=== PATIENT | female | born 1990 | race Caucasian/White ===

== ENCOUNTER 2020-04-13 07:59 | Outpatient (REF) | payer OTHER, SELFPAY | END 2020-04-13 08:00 | disposition home or self-care (01) | LOC: HO.LAB 07:59 | PROVIDERS: Visit Provider Internal Medicine | DX: Z20.828 Contact with and (suspected) exposure to other viral communicable diseases (principal) | CPT/HCPCS: C9803; U0003 ==

== ENCOUNTER 2020-04-21 09:29 | Outpatient (REF) | payer OTHER, SELFPAY | END 2020-04-21 09:30 | disposition home or self-care (01) | LOC: HO.LAB 09:29 | PROVIDERS: Visit Provider Internal Medicine | DX: Z20.828 Contact with and (suspected) exposure to other viral communicable diseases (principal) | CPT/HCPCS: C9803; U0003 ==

== ENCOUNTER 2020-05-07 15:31 | Outpatient (REF) | payer OTHER, SELFPAY | END 2020-05-07 15:32 | disposition home or self-care (01) | LOC: HO.LAB 15:31 | PROVIDERS: Visit Provider Internal Medicine | DX: Z20.828 Contact with and (suspected) exposure to other viral communicable diseases (principal) | CPT/HCPCS: C9803; U0003 ==

== ENCOUNTER 2020-06-06 15:30 | Outpatient (REF) | payer OTHER, SELFPAY | END 2020-06-06 15:31 | disposition home or self-care (01) | LOC: HO.LAB 15:30 | PROVIDERS: Visit Provider Internal Medicine | DX: Z20.822 Contact with and (suspected) exposure to COVID-19 (principal) | CPT/HCPCS: 36415; C9803; U0003 ==

== ENCOUNTER 2020-09-05 14:01 | Outpatient (REF) | payer OTHER, SELFPAY ==
[2020-09-05 15:37] LABS: COVID-19 Test Negative (Negative); IDNOW Serial# 55D5AD1C
== END 2020-09-05 14:02 | disposition home or self-care (01) ==
LOC: HO.LAB 14:01
PROVIDERS: Visit Provider Internal Medicine
DX: Z20.822 Contact with and (suspected) exposure to COVID-19 (principal)
CPT/HCPCS: 36415; 87635; C9803

== ENCOUNTER 2021-02-01 10:30 | Outpatient (REF) | payer MEDICAID, SELFPAY | END 2021-02-01 10:31 | disposition home or self-care (01) | LOC: HO.LAB 10:30 | PROVIDERS: Visit Provider Internal Medicine | DX: Z20.822 Contact with and (suspected) exposure to COVID-19 (principal) | CPT/HCPCS: C9803; U0003; U0005 ==

== ENCOUNTER 2021-02-06 11:06 | Outpatient (REF) | payer MEDICAID, SELFPAY | END 2021-02-06 11:07 | disposition home or self-care (01) | LOC: HO.LAB 11:06 | PROVIDERS: Visit Provider Internal Medicine | DX: Z20.822 Contact with and (suspected) exposure to COVID-19 (principal) | CPT/HCPCS: C9803; U0003; U0005 ==

== ENCOUNTER → 2021-02-12 10:15 | Outpatient (BNVA) | payer MEDICAID, SELFPAY | PROVIDERS: Visit Provider Advanced Practice Midwife ==

== ENCOUNTER 2021-02-21 09:22 | Outpatient (REF) | payer MEDICAID, SELFPAY | END 2021-02-21 09:23 | disposition home or self-care (01) | LOC: HO.LAB 09:22 | PROVIDERS: Visit Provider Internal Medicine | DX: Z20.822 Contact with and (suspected) exposure to COVID-19 (principal) | CPT/HCPCS: C9803; U0003; U0005 ==

== ENCOUNTER 2021-04-10 12:03 | Emergency (ER) | payer MEDICAID, SELFPAY ==
--- NOTE | ~2021-04-10 | XR_ITS ---
EXAMINATION: XR CHEST CLINICAL INFORMATION: Cough and asthma COMPARISON: Chest 03/19/2017 TECHNIQUE: 2 views of the chest were obtained. FINDINGS: No significant abnormality is noted involving the heart, lungs, mediastinum, bony thorax or soft tissues. XR/XR chest 2V IMPRESSION: Unremarkable chest examination.
[2021-04-10 12:15] VITALS: BP 112/71; PULSE 76; RESP 20; TEMP 36.7; O2SAT 97; BMI 41.5
--- NOTE | 2021-04-10 13:00 | ED_ITS ---
HPI - Asthma General Chief Complaint: Asthma Stated Complaint: asthma, cough Time Seen by Provider: 04/10/21 12:58 Source: patient Limitations: no limitations History of Present Illness HPI Narrative: This is a 31-year-old female with a history of asthma who had been well for sometime in till she developed URI symptoms about a week ago. The patient had an estimation of asthma and was seen at the [facility] 2 days ago, was started on prednisone and Zithromax, as well as albuterol, benzonatate. The patient states she was not able to get her ?chew week off medicine? field but has been taking the other ones. She noted this morning that she had severe cough which led to vomiting and she was not able to hold down her prednisone. She went to the [facility] again and was referred to the ED for evaluation, possible parental steroids. Patient reports shortness of breath with exertion, cough and wheezing. She denies any fever. She has had some URI symptoms but tested negative for COVID 2 days ago. She denies any chest pain, denies pain or swelling in her legs. She denies abdominal pain except soreness from coughing. She denies Related Data Previous Rx's Medication Instructions Recorded levonorgestrel-ethinyl estradiol 1 tab PO DAILY #84 tab 02/12/21 0.1 mg-20 mcg tablet albuterol sulfate 2.5 mg INHALATION QID PRN #75 ml 04/10/21 inhalational spacing device #10 ea 04/10/21 (Aerochamber MV) nebulizers (Aeroneb Go Nebulizer) #1 ea 04/10/21 Allergies Allergy/AdvReac Type Severity Reaction Status Date / Time Penicillins [PENICILLINS] Allergy Unknown RASH Verified 02/12/21 10:16 Review of Systems Review of Systems: Yes all other systems are reviewed and are negative Constitutional: Constitutional: Reports as per HPI and Denies fever(s) Eyes: Eyes: Reports as per HPI and Reports no additional eye complaints ENT: Reports system reviewed and no additional complaints, except as documented, Reports as per HPI, Denies nasal congestion, Denies nasal discharge and Denies sore throat Cardiovascular: Cardiovascular: Reports as per HPI, Denies chest pain and Reports dyspnea Respiratory: Respiratory: Reports as per HPI, Reports cough, Reports dyspnea and Reports wheezing Gastrointestinal: Gastrointestinal: Reports as per HPI, Denies abdominal pain, Denies diarrhea and Reports vomiting (Associated with coughing) Genitourinary: Genitourinary: Reports as per HPI, Denies hematuria, Denies urinary frequency and Denies dysuria Musculoskeletal: Musculoskeletal: Reports no additional musculoskeletal complaints and Denies numbness Integumentary/Breasts: Skin/Breast: Reports as per HPI and Denies rash Neurologic: Reports as per HPI, Denies focal weakness, Denies numbness and Denies Sensory deficit (Neuro) Psychiatric: Psychiatric: Reports no additional psychiatric complaints and Reports as per HPI Endocrine: Endocrine: Reports no additional endocrine complaints and Reports as per HPI Hematologic/Lymphatic: Hematologic/Lymphatic: Reports no additional hematologic/lymphatic complaints, Reports as per HPI and Reports other (No peripheral edema) Allergic/Immunologic: Allergic/Immunologic: Reports wheezing PMFSH Past Medical History Medical History (Updated 04/10/21 @ 14:48 by Dalton Torres MD) No active medical problems Family History Family History (Updated 04/10/21 @ 14:47 by Dalton Torres MD) Mother HTN (hypertension) High cholesterol Other Asthma Social History Social History (Updated 02/12/21 @ 10:19 by Krayna Arrington CMA) Alcohol intake: unknown Patient Tobacco Use Status: Never used Tobacco Use of substances other than those prescribed or required for medical reasons: Unable to respond Advance Directives: No Advance Directives Information Provided: Yes Patient : No Sexual orientation: Straight/Heterosexual Gender identity: Female Physical Exam Vital Signs: Vital Signs: Last Vital Signs Temp 98.1 F 04/10/21 12:15 Pulse 71 04/10/21 13:09 Resp 20 04/10/21 12:15 BP 112/71 04/10/21 12:15 Pulse Ox 97 04/10/21 12:15 Body Mass Index 41.5 Const: Other: Patient sitting on the edge of the rney, looking at her phone, appears comfortable. Patient talks in full sentences. General: cooperative, no acute distress and alert Orientation/consciousness: patient oriented x3 HENMT: Head: Yes normal to inspection Eyes: General: appearance normal, both eyes and all related structures Eyelids: Yes eyelids normal Conjunctivae: conjunctivae normal Pupils: Equal, round and reactive pupils present Neck: Neck: Yes normal visual inspection and Yes supple Chest: Chest palpation & inspection: normal inspection of the chest Resp: Effort & Inspection: normal respiratory effort Auscultation: not clear to auscultation bilaterally and wheezes (Mild expiratory) Cardio: Rate: regular rate Rhythm: regular rhythm Heart sounds: S1 normal heart sound present, S2 normal heart sound present, no gallops, no murmurs and no rubs GI: Palpation (GI): Soft to palpation, nontender and Other GI palpation findings present (Non-distended) Auscultation: normal bowel sounds Skin: General skin exam: no rashes or lesions noted Neuro: General: patient oriented x3, no focal motor deficits and CN's II-XI intact bilaterally Cranial nerves: Yes Equal, round and reactive pupils present Cognition (Neuro): normal cognition Motor exam (neuro): 5/5 motor strength present throughout Sensory Exam: No Sensory deficit (Neuro) Extrem: General: Yes normal to inspection and Yes no pedal edema Psych: Appearance: grossly normal Affect: normal affect MDM - Asthma MDM Narrative Medical decision making narrative: Patient of mild appearing asthma, with mild expiratory wheezes but speaking in full sentences, appears comfortable. Patient was sent in because she had vomited her prednisone this morning. Patient was given Solu-Medrol IM. She was given a DuoNeb which seemed to help her. She states that her albuterol inhaler does not seem to work well, but she has not been using a spacer. Am prescribing a spacer. The patient is also being pre scribed a nebulizer machine and albuterol for nebulizer. Chest x-ray is negative. Imaging Data Chest x-ray: Radiologist's impression: FINDINGS: No significant abnormality is noted involving the heart, lungs, mediastinum, bony thorax or soft tissues. XR/XR chest 2V IMPRESSION: Unremarkable chest examination. Discharge Plan Discharge Clinical Impression: Asthma attack Patient Disposition: Home, Self-Care Instructions: Asthma (ED) Additional Instructions: Use the nebulized albuterol every 6 hours as needed. If he need treatment in between or if your out and about and cannot access year nebulizer, use your inhaler with the spacer device. Continue the prednisone and a Zithromax in, and use your inhaler every 4 hours as needed. Follow up with your primary care physician. Prescriptions: New (DME) Aerochamber MV Spacer See Rx Instructions .Route Qty: 10 RF: 0 albuterol sulfate 2.5 mg /3 mL (0.083 %) solution for nebulization 2.5 mg inhalation QID PRN (Reason: bronchospasm) Qty: 75 RF: 0 (DME) Aeroneb Go Nebulizer Misc See Rx Instructions .Route Qty: 1 RF: 0 No Action levonorgestrel-ethinyl estrad 0.1-20 mg-mcg tablet 1 tab PO DAILY Qty: 84 RF: 4 Interventions: ED Discharge Assessment Last Done: 04/10/21 15:08 Discharge Date/Time: 04/10/21 15:08
[2021-04-10 13:09] VITALS: PULSE 71; O2SAT 99
[2021-04-10] MEDS: Albuterol/Iprat 2.5/0.5MG 3 ML AMPUL.NEB INHALE (13:09)
[2021-04-10] MEDS: methylPREDNISolone Sod Succ 125 MG/2 ML VIAL 80 MG IM (13:18)
== END 2021-04-10 15:08 | disposition home or self-care (01) ==
PROVIDERS: Emergency Provider Emergency Medicine
DX: J45.901 Unspecified asthma with (acute) exacerbation (principal); Z79.899 Other long term (current) drug therapy
CPT/HCPCS: 71046; 96372; 99284; J2930

== ENCOUNTER 2021-05-14 21:30 | Emergency (ER) | payer MEDICAID, SELFPAY ==
[2021-05-14 22:11] VITALS: BP 100/61; PULSE 82; RESP 20; TEMP 36.6; O2SAT 98; BMI 39.4
[2021-05-14 22:17] LABS: COVID-19 Test Positive (Negative)
== END 2021-05-14 23:32 | disposition left against medical advice (07) ==
PROVIDERS: Emergency Provider Emergency Medicine
DX: R52 Pain, unspecified (principal); Z20.822 Contact with and (suspected) exposure to COVID-19
CPT/HCPCS: 36415; 87635; 99282; 99283

== ENCOUNTER 2021-09-01 12:29 | Emergency (ER) | payer MEDICAID, SELFPAY ==
[2021-09-01 12:37] VITALS: BP 117/76; PULSE 92; RESP 16; TEMP 36.3; O2SAT 98; BMI 39.4
--- NOTE | 2021-09-01 13:34 | ED_ITS ---
HPI - Asthma General Chief Complaint: Asthma Stated Complaint: Body aches/Asthma Time Seen by Provider: 09/01/21 13:27 Source: patient Mode of arrival: ambulatory Limitations: no limitations History of Present Illness HPI Narrative: 31-year-old female with history of asthma presents to ED for coughing white phlegm, body aches, and runny nose for the past 3 days. Patient states her children also having similar symptoms. Patient denies any leg swelling, calf pain, coughing blood, shortness of breath on exertion chest pain, recent long travel, or any recent surgery. Related Data Previous Rx's Medication Instructions Recorded levonorgestrel-ethinyl estradiol 1 tab PO DAILY #84 tab 02/12/21 0.1 mg-20 mcg tablet albuterol sulfate 2.5 mg (3 mL) INHALATION QID PRN 04/10/21 #75 ml inhalational spacing device #10 ea 04/10/21 (Aerochamber MV) nebulizers (Aeroneb Go Nebulizer) #1 ea 04/10/21 albuterol sulfate 90 mcg/actuation 2 puff INHALATION Q4-6H PRN #8.5 g 09/01/21 aerosol inhaler (Ventolin HFA) benzonatate 100 mg capsule 100 mg PO TID PRN 5 Days #15 cap 09/01/21 oseltamivir 75 mg capsule (Tamiflu) 75 mg PO Q12H 5 Days #10 cap 09/01/21 prednisone 20 mg tablet 40 mg PO DAILY 5 Days #10 tab 09/01/21 Allergies Allergy/AdvReac Type Severity Reaction Status Date / Time Penicillins [PENICILLINS] Allergy Unknown RASH Verified 05/14/21 22:13 Review of Systems Review of Systems: Runny nose, body aches, and cough Yes all other systems are reviewed and are negative [facility] Past Medical History Medical History (Updated 09/01/21 @ 14:43 by JOSEPH Mccallum) No active medical problems Family History Family History (Updated 04/10/21 @ 14:47 by Dalton Torres MD) Mother HTN (hypertension) High cholesterol Other Asthma Social History Social History (Updated 02/12/21 @ 10:19 by Karyna Arrington CMA) Alcohol intake: unknown Patient Tobacco Use Status: Never used Tobacco Advance Directives: No Advance Directives Information Provided: No Patient : No Sexual orientation: Straight/Heterosexual Gender identity: Female Physical Exam Vital Signs: Vital Signs: Last Vital Signs Temp 97.3 F 09/01/21 12:37 Pulse 74 09/01/21 14:13 Resp 20 09/01/21 14:13 BP 117/76 09/01/21 12:37 Pulse Ox 98 09/01/21 12:37 BMI result Body Mass Index 39.4 Const: General: cooperative, healthy appearing, comfortable, no acute distress, well developed, alert, awake and Physically active Orientation/consciousness: patient oriented x3 HEENT: Head: Yes normal to inspection, Yes No palpable skull fracture present, Yes normocephalic, Yes atraumatic and No abrasion Eyes: General: appearance normal, both eyes and all related structures Neck: Neck: Yes normal visual inspection, Yes full ROM, Yes no lymphadenopathy, Yes no meningeal signs, Yes trachea midline, Yes supple, No anterior neck swelling and No tender Chest: Chest palpation & inspection: normal inspection of the chest and normal palpation of entire chest wall Resp: Effort & Inspection: normal respiratory effort and able to speak in complete sentences Auscultation: clear to auscultation bilaterally Cardio: Jugular venous distension: no JVD Heart sounds: S1 normal heart sound present and S2 normal heart sound present GI: Inspection: Yes normal to inspection and No abdominal wall ecchymosis Palpation (GI): Soft to palpation, not firm, nontender, no guarding and not rigid : General: No CVA tenderness and Yes no CVA tenderness Back/Spine/Pelvis: Back: no CVA tenderness, No CVA tenderness and No back tenderness Skin: General skin exam: no rashes or lesions noted and elasticity normal Neuro: General: patient oriented x3, gait normal, tone normal and no meningeal signs Cranial nerves: Yes CN's II-XII intact bilaterally Extrem: General: Yes normal to inspection and Yes full ROM Psych: Appearance: grossly normal, well kempt and not disheveled Course Course Course Narrative: Patient will be swabbed for COVID on the albuterol and steroids ordered. Lungs are clear. O2 saturation normal Reevaluation(s) Reevaluation #1: Patient came back positive for influenza A. Patient will be discharged with Tamiflu, steroids, and cough medication. Patient has albuterol inhaler at home. Time: 14:42 MDM - Asthma MDM Narrative Medical decision making narrative: Influenza a Lab Data Labs: Lab Results 09/01/21 09/01/21 Range/Units 13:48 13:48 COVID-19 ([facility]) Negative (Negative) COVID-19 Clin Com See Note Influenza Type A ([facility]) Positive A (Negative) Influenza Type B ([facility]) Negative (Negative) Influenza A & B Note See Note Discharge Plan Discharge Clinical Impression: Influenza A Patient Disposition: Home, Self-Care Instructions: Asthma (ED), Influenza (ED) Additional Instructions: You came back positive for influenza. He will be discharged with Tamiflu, steroid, and cough medication. You can use the albuterol inhaler at home. Return to the ED for any chest pain, shortness of breath, weakness, dizziness, leg swelling, calf pain, coughing up blood, or any other concerning symptoms. Please follow-up with primary care provider Prescriptions: New benzonatate 100 mg capsule 100 mg PO TID PRN (Reason: cough) 5 Days Qty: 15 0RF prednisone 20 mg tablet 40 mg PO DAILY 5 Days Qty: 10 0RF oseltamivir [Tamiflu] 75 mg capsule 75 mg PO Q12H 5 Days Qty: 10 0RF albuterol sulfate [Ventolin HFA] 90 mcg/actuation HFA aerosol inhaler 2 puff inhalation Q4-6H PRN (Reason: shortness of breath or wheezing) Qty: 8.5 0RF No Action (DME) Aerochamber MV Spacer See Rx Instructions .Route Qty: 10 0RF Rx Instructions: As directed albuterol sulfate 2.5 mg /3 mL (0.083 %) solution for nebulization 2.5 mg inhalation QID PRN (Reason: bronchospasm) Qty: 75 0RF (DME) Aeroneb Go Nebulizer Misc See Rx Instructions .Route Qty: 1 0RF Rx Instructions: As directed levonorgestrel-ethinyl estrad 0.1-20 mg-mcg tablet 1 tab PO DAILY Qty: 84 4RF Stand Alone Forms: Work/School Release Interventions: ED Discharge Assessment Last Done: 09/01/21 15:11 Discharge Date/Time: 09/01/21 15:11 Print Language: Trinid[place]
[2021-09-01] MEDS: predniSONE 20 MG TABLET 60 MG PO (13:38)
[2021-09-01 14:13] VITALS: PULSE 74; RESP 20; O2SAT 96
[2021-09-01] MEDS: Albuterol/Iprat 2.5/0.5MG 3 ML AMPUL.NEB INHALE (14:13)
[2021-09-01 14:24] LABS: Influenza A Positive (Negative); Influenza B2 Negative (Negative)
[2021-09-01 14:25] LABS: COVID-19 Test Negative (Negative); IDNOW Serial# 08D9AD1C
== END 2021-09-01 15:11 | disposition home or self-care (01) ==
PROVIDERS: Physician Assistant; Emergency Provider Emergency Medicine
DX: J10.1 Influenza due to other identified influenza virus with other respiratory manifestations (principal); M79.10 Myalgia, unspecified site; J45.909 Unspecified asthma, uncomplicated; Z20.822 Contact with and (suspected) exposure to COVID-19; Z79.899 Other long term (current) drug therapy
CPT/HCPCS: 87502; 87635; 94640; 99283

== ENCOUNTER 2022-07-22 17:49 | Emergency (ER) | payer MEDICAID, SELFPAY ==
--- NOTE | ~2022-07-22 | US_ITS ---
EXAMINATION: US PELVIS CLINICAL INFORMATION: Pelvic pain with question of ovarian cyst or torsion COMPARISON: Pelvic ultrasound 09/26/2008 TECHNIQUE: Ultrasound of the pelvis is performed using both transabdominal and transvaginal transducers along with Doppler. Transvaginal imaging is performed due to inadequate visualization transabdominally. FINDINGS: Uterus: The uterus is anteverted and measures 10.6 x 4.9 x 5.1 cm. The double wall endometrial thickness is 6 mm. The uterus is smooth in contour and has normal myometrial echogenicity. No visible fibroid. Adnexa: Both ovaries are visualized. There is normal color flow to the adnexa. There is no ovarian torsion. There is free fluid present in each adnexa that contains some debris Right ovary measures 7.4 x 4.1 x 6.2 cm for a volume of 99 mL which includes a large complex 3.3 x 2.4 x 3.6 cm cyst with multiple septations. Left ovary measures 2.2 x 1.5 x 1.5 cm for a volume of 2.6 mL and appears unremarkable. US/US pelvic ovarian doppler IMPRESSION: 1. No evidence of ovarian torsion. 2. Complex 3.6 cm right ovarian cyst with free fluid in both adnexa. Follow-up transabdominal and endovaginal ultrasound in 3 months is recommended.
--- NOTE | ~2022-07-22 | US_ITS ---
EXAMINATION: US PELVIS CLINICAL INFORMATION: Pelvic pain with question of ovarian cyst or torsion COMPARISON: Pelvic ultrasound 09/26/2008 TECHNIQUE: Ultrasound of the pelvis is performed using both transabdominal and transvaginal transducers along with Doppler. Transvaginal imaging is performed due to inadequate visualization transabdominally. FINDINGS: Uterus: The uterus is anteverted and measures 10.6 x 4.9 x 5.1 cm. The double wall endometrial thickness is 6 mm. The uterus is smooth in contour and has normal myometrial echogenicity. No visible fibroid. Adnexa: Both ovaries are visualized. There is normal color flow to the adnexa. There is no ovarian torsion. There is free fluid present in each adnexa that contains some debris Right ovary measures 7.4 x 4.1 x 6.2 cm for a volume of 99 mL which includes a large complex 3.3 x 2.4 x 3.6 cm cyst with multiple septations. Left ovary measures 2.2 x 1.5 x 1.5 cm for a volume of 2.6 mL and appears unremarkable. US/US pelvic and transvaginal IMPRESSION: 1. No evidence of ovarian torsion. 2. Complex 3.6 cm right ovarian cyst with free fluid in both adnexa. Follow-up transabdominal and endovaginal ultrasound in 3 months is recommended.
[2022-07-22 18:17] VITALS: BP 143/67; PULSE 77; RESP 18; TEMP 37.2; O2SAT 100; BMI 34.3
--- NOTE | 2022-07-22 18:18 | ED.ABDPAIN ---
HPI - Abdominal Pain General Chief Complaint: Abdominal Pain <JOSEPH Coleman - Last Filed: 07/29/22 17:45> Stated Complaint: Abd pain <JOSEPH Coleman - Last Filed: 07/29/22 17:45> Time Seen by Provider: 07/23/22 01:44 <JOSEPH Coleman - Last Filed: 07/29/22 17:45> Source: patient <Ion More MD - Last Filed: 07/23/22 02:09> Mode of arrival: ambulatory <Ion More MD - Last Filed: 07/23/22 02:09> Limitations: no limitations <Ion More MD - Last Filed: 07/23/22 02:09> Related Data Home Medications: Previous Rx's Medication Instructions Recorded levonorgestrel-ethinyl estradiol 1 tab PO DAILY #84 tabs 02/12/21 0.1 mg-20 mcg tablet albuterol sulfate 2.5 mg/3 mL 2.5 mg (3 mL) inhalation QID PRN 04/10/21 (0.083 %) solution for nebulization bronchospasm #75 mL inhalational spacing device #10 ea 04/10/21 (Aerochamber MV spacer) nebulizers (Aeroneb Go Nebulizer) #1 ea 04/10/21 albuterol sulfate 90 mcg/actuation 2 puff inhalation Q4-6H PRN 09/01/21 aerosol inhaler (Ventolin HFA) shortness of breath or wheezing #8.5 grams benzonatate 100 mg capsule 100 mg PO TID PRN cough 5 days #15 09/01/21 caps oseltamivir 75 mg capsule (Tamiflu) 75 mg PO Q12H 5 days #10 caps 09/01/21 prednisone 20 mg tablet 40 mg PO DAILY 5 days #10 tabs 09/01/21 ibuprofen 600 mg tablet 600 mg PO Q6H PRN fever or pain 07/23/22 #30 tabs <JOSEPH Coleman - Last Filed: 07/29/22 17:45> Allergies/Adverse Reactions: Allergies Allergy/AdvReac Type Severity Reaction Status Date / Time Penicillins [PENICILLINS] Allergy Unknown RASH Verified 05/14/21 22:13 <JOSEPH Coleman - Last Filed: 07/29/22 17:45> [facility] Past Medical History Medical History: Medical History (Updated 07/24/22 @ 00:01 by Iris Toro) No active medical problems <JOSEPH Coleman - Last Filed: 07/29/22 17:45> Family History Family History: Family History (Updated 04/10/21 @ 14:47 by Dalton Torres MD) Mother HTN (hypertension) High cholesterol Other Asthma <JOSEPH Coleman - Last Filed: 07/29/22 17:45> Social History Social History: Social History (Updated 02/12/21 @ 10:19 by Karyna Arrington CMA) Alcohol intake: unknown Patient Tobacco Use Status: Never used Tobacco Advance Directives: No Advance Directives Information Provided: No Sexual orientation: Straight/Heterosexual Gender identity: Female <JOSEPH Coleman - Last Filed: 07/29/22 17:45> Physical Exam ED Vital Signs: Vital Signs - 24 hr 07/22/22 18:17 Temperature 98.9 F Pulse Rate 77 Respiratory Rate 18 Blood Pressure 143/67 H Pulse Oximetry 100 BMI result Body Mass Index 34.3 <JOSEPH Coleman - Last Filed: 07/29/22 17:45> Vital Signs - 24 hr 07/22/22 18:17 Temperature 98.9 F Pulse Rate 77 Respiratory Rate 18 Blood Pressure 143/67 H Pulse Oximetry 100 BMI result Body Mass Index 34.3 <Ion More MD - Last Filed: 07/23/22 02:09> Course Course Course Narrative: RME--32-year-old female with a past medical history of asthma presenting to ED complaining of lower abdominal cramping, pressure, dysuria x few hours parent denies nausea, vomiting, diarrhea, dysuria, vaginal bleeding/discharge Abdomen soft with lower/suprapubic tenderness, no rebound or guarding Labs, UA, , ultrasound ordered <JOSEPH Coleman - Last Filed: 07/29/22 17:45> Medical Decision Making Lab Data Result Diagrams: 07/22/22 18:43 07/22/22 18:43 <JOSEPH Coleman - Last Filed: 07/29/22 17:45> Labs: Lab Results 07/22/22 07/22/2223 Range/Units 18:43 18:43 01:56 WBC 14.3 H (4.8-10.8) X10*3/uL RBC 4.46 (4.20-5.50) X10*6/uL Hgb 13.2 (12.0-16.0) g/dl Hct 39.2 (37.0-47.0) % MCV 87.9 (80.0-98.0) fL MCH 29.6 (27.0-33.0) pg MCHC 33.7 (31.0-35.0) g/dl RDW 12.0 (11.0-16.0) % Plt Count 211 (160-400) X10*3/uL MPV 9.7 (9.4-12.3) fL Immature Gran % (Auto) 0.3 (0.0-0.4) % Neut % (Auto) 79.7 H (45-73) % Lymph % (Auto) 14.5 L (20-40) % [place] % (Auto) 4.9 (2-11) % Eos % (Auto) 0.3 (0-4) % Baso % (Auto) 0.3 (0-2) % Lymph # (Auto) 2.1 (1.2-4.9) X10*3/uL [place] # (Auto) 0.7 (0.1-1.2) X10*3/uL Eos # (Auto) 0.0 (0.0-0.4) X10*3/uL Baso # (Auto) 0.1 (0.0-0.2) X10*3/uL Abs Immat Gran (auto) 0.05 H (0.00-0.03) X10*3/uL Absolute Neuts (auto) 11.4 H (2.0-8.3) x10*3/uL Absolute Nucleated RBC 0.000 (0.0-0.012) X10*3/uL Nucleated RBC % (auto) 0.0 (0.0-0.2) /100WBC Sodium 137 (135-145) mmol/L Potassium 3.9 (3.3-5.1) mmol/L Chloride 106 (96-108) mmol/L Carbon Dioxide 21 L (22-29) mmol/L Anion Gap 14 (12-20) BUN 12 (9-16) mg/dL Creatinine 0.77 (0.5-1.4) mg/dL Estim Creat Clear Calc 116.5 Estimated GFR > 60 Random Glucose 87 (60-115) mg/dL Calcium 9.0 (8.4-10.2) mg/dL Magnesium 1.9 (1.6-2.6) mg/dL Total Bilirubin 1.0 (0.0-1.0) mg/dL Direct Bilirubin 0.3 (0.0-0.5) mg/dL AST 14 (5-31) U/L ALT 16 (0-31) U/L Alkaline Phosphatase 61 (39-117) U/L Total Protein 6.5 (6.5-8.0) g/dL Albumin 4.1 (3.5-5.0) g/dL Lipase 10 (8-78) U/L Urine Color Yellow Urine Appearance Clear Urine pH 7.5 (5.0-9.0) Ur Specific [place] 1.025 (1.005-1.025) Urine Protein Negative (Neg-Trace) mg/dL Urine Glucose (UA) Negative (Negative) mg/dL Urine Ketones 15 (Negative) mg/dL Urine Blood Negative (Negative) Urine Nitrite Negative (Negative) Ur Leukocyte Esterase Negative (Negative) Urine Test (NEGATIVE) 07/23/22 Range/Units 01:56 WBC (4.8-10.8) X10*3/uL RBC (4.20-5.50) X10*6/uL Hgb (12.0-16.0) g/dl Hct (37.0-47.0) % MCV (80.0-98.0) fL MCH (27.0-33.0) pg MCHC (31.0-35.0) g/dl RDW (11.0-16.0) % Plt Count (160-400) X10*3/uL MPV (9.4-12.3) fL Immature Gran % (Auto) (0.0-0.4) % Neut % (Auto) (45-73) % Lymph % (Auto) (20-40) % [place] % (Auto) (2-11) % Eos % (Auto) (0-4) % Baso % (Auto) (0-2) % Lymph # (Auto) (1.2-4.9) X10*3/uL [place] # (Auto) (0.1-1.2) X10*3/uL Eos # (Auto) (0.0-0.4) X10*3/uL Baso # (Auto) (0.0-0.2) X10*3/uL Abs Immat Gran (auto) (0.00-0.03) X10*3/uL Absolute Neuts (auto) (2.0-8.3) x10*3/uL Absolute Nucleated RBC (0.0-0.012) X10*3/uL Nucleated RBC % (auto) (0.0-0.2) /100WBC Sodium (135-145) mmol/L Potassium (3.3-5.1) mmol/L Chloride (96-108) mmol/L Carbon Dioxide (22-29) mmol/L Anion Gap (12-20) BUN (9-16) mg/dL Creatinine (0.5-1.4) mg/dL Estim Creat Clear Calc Estimated GFR Random Glucose (60-115) mg/dL Calcium (8.4-10.2) mg/dL Magnesium (1.6-2.6) mg/dL Total Bilirubin (0.0-1.0) mg/dL Direct Bilirubin (0.0-0.5) mg/dL AST (5-31) U/L ALT (0-31) U/L Alkaline Phosphatase (39-117) U/L Total Protein (6.5-8.0) g/dL Albumin (3.5-5.0) g/dL Lipase (8-78) U/L Urine Color Urine Appearance Urine pH (5.0-9.0) Ur Specific [place] (1.005-1.025) Urine Protein (Neg-Trace) mg/dL Urine Glucose (UA) (Negative) mg/dL Urine Ketones (Negative) mg/dL Urine Blood (Negative) Urine Nitrite (Negative) Ur Leukocyte Esterase (Negative) Urine Test NEGATIVE (NEGATIVE) <JOSEPH Coleman - Last Filed: 07/29/22 17:45> Lab Results 07/22/22 07/22/22 07/23/22 Range/Units 18:43 18:43 01:56 WBC 14.3 H (4.8-10.8) X10*3/uL RBC 4.46 (4.20-5.50) X10*6/uL Hgb 13.2 (12.0-16.0) g/dl Hct 39.2 (37.0-47.0) % MCV 87.9 (80.0-98.0) fL MCH 29.6 (27.0-33.0) pg MCHC 33.7 (31.0-35.0) g/dl RDW 12.0 (11.0-16.0) % Plt Count 211 (160-400) X10*3/uL MPV 9.7 (9.4-12.3) fL Immature Gran % (Auto) 0.3 (0.0-0.4) % Neut % (Auto) 79.7 H (45-73) % Lymph % (Auto) 14.5 L (20-40) % [place] % (Auto) 4.9 (2-11) % Eos % (Auto) 0.3 (0-4) % Baso % (Auto) 0.3 (0-2) % Lymph # (Auto) 2.1 (1.2-4.9) X10*3/uL [place] # (Auto) 0.7 (0.1-1.2) X10*3/uL Eos # (Auto) 0.0 (0.0-0.4) X10*3/uL Baso # (Auto) 0.1 (0.0-0.2) X10*3/uL Abs Immat Gran (auto) 0.05 H (0.00-0.03) X10*3/uL Absolute Neuts (auto) 11.4 H (2.0-8.3) x10*3/uL Absolute Nucleated RBC 0.000 (0.0-0.012) X10*3/uL Nucleated RBC % (auto) 0.0 (0.0-0.2) /100WBC Sodium 137 (135-145) mmol/L Potassium 3.9 (3.3-5.1) mmol/L Chloride 106 (96-108) mmol/L Carbon Dioxide 21 L (22-29) mmol/L Anion Gap 14 (12-20) BUN 12 (9-16) mg/dL Creatinine 0.77 (0.5-1.4) mg/dL Estim Creat Clear Calc 116.5 Estimated GFR > 60 Random Glucose 87 (60-115) mg/dL Calcium 9.0 (8.4-10.2) mg/dL Magnesium 1.9 (1.6-2.6) mg/dL Total Bilirubin 1.0 (0.0-1.0) mg/dL Direct Bilirubin 0.3 (0.0-0.5) mg/dL AST 14 (5-31) U/L ALT 16 (0-31) U/L Alkaline Phosphatase 61 (39-117) U/L Total Protein 6.5 (6.5-8.0) g/dL Albumin 4.1 (3.5-5.0) g/dL Lipase 10 (8-78) U/L Urine Color Yellow Urine Appearance Clear Urine pH 7.5 (5.0-9.0) Ur Specific [place] 1.025 (1.005-1.025) Urine Protein Negative (Neg-Trace) mg/dL Urine Glucose (UA) Negative (Negative) mg/dL Urine Ketones 15 (Negative) mg/dL Urine Blood Negative (Negative) Urine Nitrite Negative (Negative) Ur Leukocyte Esterase Negative (Negative) Urine Test (NEGATIVE) 07/23/22 Range/Units 01:56 WBC (4.8-10.8) X10*3/uL RBC (4.20-5.50) X10*6/uL Hgb (12.0-16.0) g/dl Hct (37.0-47.0) % MCV (80.0-98.0) fL MCH (27.0-33.0) pg MCHC (31.0-35.0) g/dl RDW (11.0-16.0) % Plt Count (160-400) X10*3/uL MPV (9.4-12.3) fL Immature Gran % (Auto) (0.0-0.4) % Neut % (Auto) (45-73) % Lymph % (Auto) (20-40) % [place] % (Auto) (2-11) % Eos % (Auto) (0-4) % Baso % (Auto) (0-2) % Lymph # (Auto) (1.2-4.9) X10*3/uL [place] # (Auto) (0.1-1.2) X10*3/uL Eos # (Auto) (0.0-0.4) X10*3/uL Baso # (Auto) (0.0-0.2) X10*3/uL Abs Immat Gran (auto) (0.00-0.03) X10*3/uL Absolute Neuts (auto) (2.0-8.3) x10*3/uL Absolute Nucleated RBC (0.0-0.012) X10*3/uL Nucleated RBC % (auto) (0.0-0.2) /100WBC Sodium (135-145) mmol/L Potassium (3.3-5.1) mmol/L Chloride (96-108) mmol/L Carbon Dioxide (22-29) mmol/L Anion Gap (12-20) BUN (9-16) mg/dL Creatinine (0.5-1.4) mg/dL Estim Creat Clear Calc Estimated GFR Random Glucose (60-115) mg/dL Calcium (8.4-10.2) mg/dL Magnesium (1.6-2.6) mg/dL Total Bilirubin (0.0-1.0) mg/dL Direct Bilirubin (0.0-0.5) mg/dL AST (5-31) U/L ALT (0-31) U/L Alkaline Phosphatase (39-117) U/L Total Protein (6.5-8.0) g/dL Albumin (3.5-5.0) g/dL Lipase (8-78) U/L Urine Color Urine Appearance Urine pH (5.0-9.0) Ur Specific [place] (1.005-1.025) Urine Protein (Neg-Trace) mg/dL Urine Glucose (UA) (Negative) mg/dL Urine Ketones (Negative) mg/dL Urine Blood (Negative) Urine Nitrite (Negative) Ur Leukocyte Esterase (Negative) Urine Test NEGATIVE (NEGATIVE) <Ion More MD - Last Filed: 07/23/22 02:09> Medications Administered Discontinued Medications Generic Name Dose Route Start Last Admin Trade Name Freq PRN Reason Stop Dose Admin Ibuprofen 600 mg 07/23/22 02:04 07/23/22 02:10 Ibuprofen 600 Mg Tablet PO 07/23/22 02:05 600 mg ONCE ONE Administration <JOSEPH Coleman - Last Filed: 07/29/22 17:45> Medications Administered Discontinued Medications Generic Name Dose Route Start Last Admin Trade Name Freq PRN Reason Stop Dose Admin Ibuprofen 600 mg 07/23/22 02:04 07/23/22 02:10 Ibuprofen 600 Mg Tablet PO 07/23/22 02:05 600 mg ONCE ONE Administration <Ion More MD - Last Filed: 07/23/22 02:09> Discharge Plan Discharge Clinical Impression: Ovarian cyst <JOSEPH Coleman - Last Filed: 07/29/22 17:45> Patient Disposition: Home, Self-Care <JOSEPH Coleman - Last Filed: 07/29/22 17:45> Instructions: Ovarian Cyst (ED) <JOSEPH Coleman - Last Filed: 07/29/22 17:45> Additional Instructions: Ibuprofen for pain Ovarian cyst will likely decrease in size in 2 months Follow-up with PCP/claim review medical director if pain continues <JOSEPH Coleman - Last Filed: 07/29/22 17:45> Prescriptions: New ibuprofen 600 mg tablet 600 mg PO Q6H PRN (Reason: fever or pain) Qty: 30 0RF No Action (DME) Aerochamber MV Spacer See Rx Instructions .Route Qty: 10 0RF Rx Instructions: As directed albuterol sulfate 2.5 mg /3 mL (0.083 %) solution for nebulization 2.5 mg inhalation QID PRN (Reason: bronchospasm) Qty: 75 0RF (DME) Aeroneb Go Nebulizer Misc See Rx Instructions .Route Qty: 1 0RF Rx Instructions: As directed benzonatate 100 mg capsule 100 mg PO TID PRN (Reason: cough) 5 Days Qty: 15 0RF prednisone 20 mg tablet 40 mg PO DAILY 5 Days Qty: 10 0RF oseltamivir [Tamiflu] 75 mg capsule 75 mg PO Q12H 5 Days Qty: 10 0RF albuterol sulfate [Ventolin HFA] 90 mcg/actuation HFA aerosol inhaler 2 puff inhalation Q4-6H PRN (Reason: shortness of breath or wheezing) Qty: 8.5 0RF levonorgestrel-ethinyl estrad 0.1-20 mg-mcg tablet 1 tab PO DAILY Qty: 84 4RF <JOSEPH Coleman - Last Filed: 07/29/22 17:45> Referrals: Nam Mg MD [Physician] - 1 week <JOSEPH Coleman - Last Filed: 07/29/22 17:45> Stand Alone Forms: Work/School Release <JOSEPH Coleman - Last Filed: 07/29/22 17:45> Interventions: ED Discharge Assessment Last Done: 07/23/22 02:16 <JOSEPH Coleman - Last Filed: 07/29/22 17:45> Discharge Date/Time: 07/23/22 02:16 <JOSEPH Coleman - Last Filed: 07/29/22 17:45>
[2022-07-22 18:46] LABS: MANUAL DIFF FLAG NO
[2022-07-22 18:58] LABS: Basophils Absolute Auto 0.1 X10*3/uL (0.0-0.2); Basophils Percent Auto 0.3 % (0-2); Eosinophils Percent Auto 0.3 % (0-4); Hematocrit 39.2 % (37.0-47.0); Hemoglobin 13.2 g/dl (12.0-16.0); Imm Gran Abs Auto 0.05 X10*3/uL (0.00-0.03); Imm Gran Pct Auto 0.3 % (0.0-0.4); Lymphocytes Absolute Auto 2.1 X10*3/uL (1.2-4.9); Lymphocytes Percent Auto 14.5 % (20-40); Mean Corpuscular HGB Conc 33.7 g/dl (31.0-35.0); Mean Corpuscular Hemoglobin 29.6 pg (27.0-33.0); Mean Corpuscular Volume 87.9 fL (80.0-98.0); Mean Platelet Volume 9.7 fL (9.4-12.3); Monocytes Absolute Auto 0.7 X10*3/uL (0.1-1.2); Monocytes Percent Auto 4.9 % (2-11); Neutrophils Absolute Auto 11.4 x10*3/uL (2.0-8.3); Neutrophils Percent Auto 79.7 % (45-73); Platelet Count 211 X10*3/uL (160-400); Red Blood Count 4.46 X10*6/uL (4.20-5.50); White Blood Count 14.3 X10*3/uL (4.8-10.8)
[2022-07-22 19:03] LABS: Alanine Aminotransferase 16 U/L (0-31); Albumin Level 4.1 g/dL (3.5-5.0); Alkaline Phosphatase 61 U/L (39-117); Anion Gap 14 (12-20); Aspartate Amino Transferase 14 U/L (5-31); Bilirubin Direct 0.3 mg/dL (0.0-0.5); Blood Urea Nitrogen 12 mg/dL (9-16); Carbon Dioxide 21 mmol/L (22-29); Chloride 106 mmol/L (96-108); Creatinine Clr Calc Pharmacy 116.5; Estimated Glomerular Filt Rate > 60; Glucose Random 87 mg/dL (60-115); Lipase 10 U/L (8-78); Magnesium 1.9 mg/dL (1.6-2.6); Potassium 3.9 mmol/L (3.3-5.1); Sodium 137 mmol/L (135-145); Total Protein 6.5 g/dL (6.5-8.0)
[2022-07-23 02:02] LABS: Appearance Urine Clear; Color Urine Yellow; Glucose Urine UA Negative (Negative); Leukocyte Esterase Urine Negative (Negative); Nitrite Urine Negative (Negative); PH 7.5 (5.0-9.0); Specific Gravity - Urine 1.025 (1.005-1.025); Urine Blood Negative (Negative); Urine Ketones 15 mg/dL (Negative); Urine Protein Negative (Neg-Trace)
[2022-07-23 02:04] LABS: UPreg QC Valid YES; Urine Pregnancy NEGATIVE (NEGATIVE)
[2022-07-23] MEDS: Ibuprofen 600 MG TABLET PO (02:10)
[2022-07-23 02:11] VITALS: PULSE 79; RESP 16; TEMP 36.5; O2SAT 98
[2022-07-23 02:14] VITALS: BP 114/57
== END 2022-07-23 02:16 | disposition home or self-care (01) ==
PROVIDERS: Physician Assistant; Emergency Provider Internal Medicine
DX: N83.209 Unspecified ovarian cyst, unspecified side (principal); R10.30 Lower abdominal pain, unspecified; R10.2 Pelvic and perineal pain; Z79.899 Other long term (current) drug therapy
CPT/HCPCS: 36415; 76830; 76856; 80048; 80076; 81003; 81025; 83690; 83735; 85025; 93975; 99284

== ENCOUNTER 2022-12-01 16:07 | Outpatient (REF) | payer MEDICAID, SELFPAY ==
[2022-12-04 03:09] LABS: TS Negative Control Passed; TS Panel A 0; TS Panel B 1; TS Positive Control Passed; TSpotTB Negative (Negative)
== END 2022-12-01 16:08 | disposition home or self-care (01) ==
LOC: HO.HHCL 16:07
PROVIDERS: Visit Provider Registered Nurse
DX: Z11.1 Encounter for screening for respiratory tuberculosis (principal)
CPT/HCPCS: 36415; 86481

== ENCOUNTER 2023-03-04 10:33 | Outpatient (AMB) | payer MEDICAID, SELFPAY ==
--- NOTE | 2023-03-04 10:36 | MHC.OFFVIS ---
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 Allergies Penicillins [PENICILLINS] Allergy (Unknown, Verified 03/04/23 10:53) RASH Medication List - Last Reconciled 03/04/23 by Helen Lopez CNM albuterol sulfate 2.5 mg (3 mL) inhalation QID PRN albuterol sulfate 90 mcg/actuation (Ventolin HFA) 2 puffs inhalation Q4-6H PRN ibuprofen 600 mg PO Q6H PRN inhalational spacing device (Aerochamber MV spacer) As directed levonorgestrel (Plan B One-Step) 1.5 mg PO ONCE levonorgestrel-ethinyl estrad 0.1-20 mg-mcg 1 tab PO DAILY nebulizers (Aeroneb Go Nebulizer) As directed Is last menstrual period known: Yes Last menstrual period: 02/23/23 Post menopausal: No HPI control consult HPI Details Patient is here because she wants to start back on her control pills. She has not been seen here in a while she was on control pills and then she went off them last year she got on intentionally [facility] [place]. She got a prescription from them for control pills for year and she did not realize but it ran out on Thursday so she called yesterday for plan B control which she took and she called for this appointment as well she wants to continue on the control pills she is not having any health problems she is overdue for an annual exam. Her children are 10 or 11 and for and doing great. She knows how to take the pills same time every day and was having no problem with them at all. She called her pharmacy to double check the prescription that she is on and she was on levonorgestrel 0.1 mg with ethanol less to deal 0.02 mg. [facility] Medical History No active medical problems Surgical History (Updated 03/04/23 @ 10:57 by ISA Guzmán) Hx of section Family History Mother HTN (hypertension) High cholesterol Other Asthma Social History (Updated 03/04/23 @ 10:57 by ISA Guzmán) Alcohol intake: current Alcohol intake frequency: holidays/special occasions only Patient Tobacco Use Status: Never used Tobacco Sexual orientation: Straight/Heterosexual Gender identity: Female Female Reproductive History Menstrual Age of Menarche: 17 Duration of menses: 6-7 days Date of last menstrual period: 02/23/23 control method: pills Total pregnancies: 4 Full term: 2 Number of Living Children: 2 Ab induced: 2 Physical Exam Vital Signs: Last Vital Signs BP 118/72 03/04/23 10:50 BMI result Body Mass Index 34.8 Assessment & Plan Assessment & Plan (1) BCP ( control pills) initiation: Code(s): Z30.011 - Encounter for initial prescription of contraceptive pills (2) Cervical cancer screening: Comment: pt is sure she had pap w this practice, unable to locate, even in ob records. Do at next visit-2020. Code(s): Z12.4 - Encounter for screening for malignant neoplasm of cervix Plan Reviewed how to take the control pills and I recommend she take 2 pills today in 2 pills tomorrow to catch up and she will be scheduling an annual exam and Pap smear and STD checkup at the [facility]. She has no questions I sent the prescription through to her pharmacy is [facility] Medications: Refilled levonorgestrel-ethinyl estrad 0.1-20 mg-mcg 1 tab PO DAILY 84 tabs 4RF Coding Level of Care Code Est Pt Level 3 (82748) Diagnoses BCP ( control pills) initiation Z30.011 Cervical cancer screening Z12.4
[2023-03-04 10:50] VITALS: BP 118/72; BMI 34.8
== END 2023-03-04 11:26 | disposition home or self-care (01) ==
PROVIDERS: Visit Provider Advanced Practice Midwife
DX: Z30.011 Encounter for initial prescription of contraceptive pills (principal)
CPT/HCPCS: 99213

== ENCOUNTER → 2023-03-04 10:33 | Outpatient (BNVA) | payer MEDICAID, SELFPAY | PROVIDERS: Visit Provider Advanced Practice Midwife | DX: Z30.011 Encounter for initial prescription of contraceptive pills (principal); Z12.4 Encounter for screening for malignant neoplasm of cervix | CPT/HCPCS: 99212 ==

== ENCOUNTER 2023-05-13 19:31 | Outpatient (REF) | payer MEDICAID, SELFPAY | END 2023-05-13 19:32 | disposition home or self-care (01) | LOC: HO.HHCLNP 19:31 | PROVIDERS: Visit Provider Emergency Medicine | DX: R68.89 Other general symptoms and signs (principal) | CPT/HCPCS: 87070; 87147 ==

== ENCOUNTER 2024-08-10 10:36 | Emergency (ER) | payer MEDICAID, SELFPAY ==
--- NOTE | ~2024-08-10 | US_ITS ---
EXAMINATION: US FIRST TRIMESTER OB HISTORY: pain TECHNIQUE: Endovaginal scanning was performed. FINDINGS: There is a single, live intrauterine . There is a 1.3 x 1.6 x 0.9 cm cystic structure in the placenta. AUA = 13 weeks 0 days KEELEY(AUA) = 02/15/2025 LMP = unknown CRL = 6.5cm FHR = 169bpm Right ovary: The right ovary measures 2.8 x 1.4 x 2.5 cm and is unremarkable. Left ovary: The left ovary measures 3.0 x 1.6 x 2.2 cm and demonstrates a 2.0 x 1.3 x 2.0 cm hypoechoic area which likely represents the corpus luteum. Cul-de-sac: No free fluid US/US OB <= 14 weeks fetus IMPRESSION: Single, live intrauterine of estimated gestational age 13 weeks, 0 days. Electronically signed by: Vitor Lucas MD 08/10/2024 01:58 PM EDT
[2024-08-10 10:40] VITALS: BP 101/63; PULSE 69; RESP 20; TEMP 36.7; O2SAT 100; BMI 39.1
[2024-08-10 12:07] LABS: MANUAL DIFF FLAG NO
[2024-08-10 12:10] LABS: Basophils Percent Auto 0.4 % (0-2); Eosinophils Absolute Auto 0.1 X10*3/uL (0.0-0.4); Eosinophils Percent Auto 0.6 % (0-4); Hematocrit 40.5 % (37.0-47.0); Hemoglobin 14.3 g/dl (12.0-16.0); Imm Gran Abs Auto 0.06 X10*3/uL (0.00-0.03); Imm Gran Pct Auto 0.5 % (0.0-0.4); Lymphocytes Absolute Auto 2.1 X10*3/uL (1.2-4.9); Lymphocytes Percent Auto 19.1 % (20-40); Mean Corpuscular HGB Conc 35.3 g/dl (31.0-35.0); Mean Corpuscular Hemoglobin 30.1 pg (27.0-33.0); Mean Corpuscular Volume 85.3 fL (80.0-98.0); Mean Platelet Volume 9.4 fL (9.4-12.3); Monocytes Absolute Auto 0.7 X10*3/uL (0.1-1.2); Monocytes Percent Auto 6.1 % (2-11); Neutrophils Absolute Auto 8.2 x10*3/uL (2.0-8.3); Neutrophils Percent Auto 73.3 % (45-73); Platelet Count 212 X10*3/uL (160-400); Red Blood Count 4.75 X10*6/uL (4.20-5.50); Red Cell Distribution Width 11.7 % (11.0-16.0); White Blood Count 11.2 X10*3/uL (4.8-10.8)
--- NOTE | 2024-08-10 12:15 | ED.GENADULT ---
HPI - General Adult General Chief complaint: General Medical Stated complaint: Throwing Up, Dehydration, Asthma, Trouble Sleeping Time Seen by Provider: 08/10/24 16:04 Source: patient, RN notes reviewed and old records reviewed Mode of arrival: ambulatory Limitations: no limitations History of Present Illness ED Provider: Azam HPI narrative: 34-year-old female presents for evaluation of vomiting, weakness plan patient reports she found out she was 13 days ago. She reports she has been vomiting on and off for about 2 weeks. She complains of generalized weakness, body aches, shortness of breath pain She reports difficulty sleeping Denies any fevers, chills, vaginal bleeding or discharge She is . Her previous the [facility] as her last resulted in his Follow up with [facility] for her OBGYN care Related Data Previous Rx's ?Medication ?Instructions ?Recorded albuterol sulfate 2.5 mg/3 mL 2.5 mg (3 mL) inhalation QID PRN 04/10/21 (0.083 %) solution for nebulization bronchospasm #75 mL inhalational spacing device #10 ea 04/10/21 (Aerochamber MV spacer) nebulizers (Aeroneb Go Nebulizer) #1 ea 04/10/21 albuterol sulfate 90 mcg/actuation 2 puff inhalation Q4-6H PRN 09/01/21 aerosol inhaler (Ventolin HFA) shortness of breath or wheezing #8.5 grams ibuprofen 600 mg tablet 600 mg PO Q6H PRN fever or pain 07/23/22 #30 tabs levonorgestrel 1.5 mg tablet (Plan 1.5 mg PO ONCE #1 tab 03/03/23 B One-Step) levonorgestrel-ethinyl estradiol 1 tab PO DAILY #84 tabs 03/04/23 0.1 mg-20 mcg tablet doxylamine 10 mg-pyridoxine (vit 1 tab PO BID PRN nausea and 08/10/24 B6) 10 mg tablet,delayed release vomiting #60 tabs (Diclegis) mv-mn no.97-folic 180 mcg-dha 25 1 tab PO DAILY #30 tabs 08/10/24 mg-herb no.293 25 mg chewable tablet (Alive Daily Support ) Allergies Allergy/AdvReac Type Severity Reaction Status Date / Time Penicillins [PENICILLINS] Allergy Unknown RASH Verified 08/10/24 10:47 Review of Systems Constitutional: Constitutional: Denies body ache(s), Denies chills, Reports difficulty sleeping, Denies fever(s), Denies headache(s), Reports lethargy and Reports weakness Eyes: Eyes: Denies blurry vision ENT: Denies vertigo, Denies dizziness and Denies headache(s) Cardiovascular: Cardiovascular: Denies chest pain Respiratory: Respiratory: Denies cough Gastrointestinal: Gastrointestinal: Denies abdominal pain, Reports nausea and Reports vomiting Genitourinary: Genitourinary: Denies dysuria, Reports pelvic pain, Denies urinary urgency, Denies vaginal discharge and Denies vaginal dryness Musculoskeletal: Musculoskeletal: Denies back pain Integumentary/Breasts: Skin/Breast: Denies rash Neurologic: Denies vertigo, Denies dizziness, Denies headache(s) and Reports weakness PMFSH Past Medical History Medical History (Updated 08/10/24 @ 16:32 by Malcolm Nascimento) No active medical problems Surgical History (Updated 03/04/23 @ 10:57 by ISA Guzmán) Hx of section Family History Family History Mother HTN (hypertension) High cholesterol Other Asthma Social History Social History (Updated 03/04/23 @ 10:57 by ISA Guzmán) Alcohol intake: current Alcohol intake frequency: holidays/special occasions only Patient Tobacco Use Status: Never used Tobacco Advance Directives: No Advance Directives Information Provided: No Sexual orientation: Straight/Heterosexual Gender identity: Female Physical Exam ED Vital Signs: Vital Signs - 24 hr 08/10/24 10:40 Temperature 98.0 F Pulse Rate 69 Respiratory Rate 20 Blood Pressure 101/63 Pulse Oximetry 100 Oxygen Delivery Method Room Air BMI result Body Mass Index 39.1 Const General: healthy appearing, comfortable, no acute distress, alert and awake Nutritional Appearance: well nourished Orientation/consciousness: patient oriented x3 HENMT Head: Yes normocephalic and Yes atraumatic Eyes Eyelids: Yes eyelids normal Conjunctivae: conjunctivae normal Sclerae: sclerae normal Corneas: corneas normal Pupils: Equal, round and reactive pupils present EOM: EOMs intact bilaterally Neck Neck: Yes full ROM Resp Effort & Inspection: normal respiratory effort, able to speak in complete sentences and not labored GI Inspection: No distended Palpation (GI): Soft to palpation, not firm, nontender, no guarding and not rigid Skin General skin exam: elasticity normal Neuro General: patient oriented x3 Cranial nerves: Yes Equal, round and reactive pupils present and Yes Bilaterally intact EOM present Cognition (Neuro): normal cognition Extrem Other: Moving all extremities well without any obvious deformities Course Course Course Narrative: 34-year-old female who is currently approximately 3 months , yet to have serum labs to verify dates of . She presents with right lower abdominal pain, nausea vomiting. No vaginal bleeding. Plan is to obtain screening labs, serum quant and a pelvic ultrasound to rule out ectopic, it was reassuring that she is not bleeding. Medical Decision Making Medical Decision Making [facility] [place] Narrative: 34-year-old female who is presents for evaluation of weakness and vomiting. Vital signs are stable, she is not clinically dehydrated, labs are reassuring, she has no evidence of MARCO A or electrolyte abnormality. The patient's symptoms are most consistent with hyperemesis gravidarum. She did have a formal pelvic ultrasound which shows a single intrauterine gestation with a heart rate of 169 beats minute and estimated at 13 weeks. Discussed possible IV fluids the patient which she declines, she would like to be discharged home at this time which I feel is appropriate. The patient will follow up with her outpatient OBGYN providers. She was. We will discharge her with diclegis to help with her nausea and vomiting Differential Diagnosis Differential Diagnoses: The differential diagnosis associated with the presentation includes Hyperemesis gravidarum Dehydration MARCO A Electrolyte abnormality Ectopic Lab Data [facility] [place] Lab Attestation statement: I reviewed the patient's lab results. Mild leukocytosis to 11.2 which is likely reactive to her . No significant anemia. Normal platelet count. No electrolyte abnormalities warranting intervention. Renal function within normal limits. 08/10/24 12:02 08/10/24 12:02 Labs: Lab Results 08/10/24 Range/Units 12:02 WBC 11.2 H (4.8-10.8) X10*3/uL RBC 4.75 (4.20-5.50) X10*6/uL Hgb 14.3 (12.0-16.0) g/dl Hct 40.5 (37.0-47.0) % MCV 85.3 (80.0-98.0) fL MCH 30.1 (27.0-33.0) pg MCHC 35.3 H (31.0-35.0) g/dl RDW 11.7 (11.0-16.0) % Plt Count 212 (160-400) X10*3/uL MPV 9.4 (9.4-12.3) fL Immature Gran % (Auto) 0.5 H (0.0-0.4) % Neut % (Auto) 73.3 H (45-73) % Lymph % (Auto) 19.1 L (20-40) % [place] % (Auto) 6.1 (2-11) % Eos % (Auto) 0.6 (0-4) % Baso % (Auto) 0.4 (0-2) % Lymph # (Auto) 2.1 (1.2-4.9) X10*3/uL [place] # (Auto) 0.7 (0.1-1.2) X10*3/uL Eos # (Auto) 0.1 (0.0-0.4) X10*3/uL Baso # (Auto) 0.0 (0.0-0.2) X10*3/uL Abs Immat Gran (auto) 0.06 H (0.00-0.03) X10*3/uL Absolute Neuts (auto) 8.2 (2.0-8.3) x10*3/uL Absolute Nucleated RBC 0.000 (0.0-0.012) X10*3/uL Nucleated RBC % (auto) 0.0 (0.0-0.2) /100WBC Sodium 137 (135-145) mmol/L Potassium 4.0 (3.3-5.1) mmol/L Chloride 106 (96-108) mmol/L Carbon Dioxide 25 (22-29) mmol/L Anion Gap 10 L (12-20) BUN 7 L (9-16) mg/dL Creatinine 0.62 (0.5-1.4) mg/dL Estim Creat Clear Calc 152.5 Estimated GFR > 60 Random Glucose 78 (60-115) mg/dL Calcium 9.5 (8.4-10.2) mg/dL Magnesium 1.9 (1.6-2.6) mg/dL Total Bilirubin 0.7 (0.0-1.0) mg/dL Direct Bilirubin 0.2 (0.0-0.5) mg/dL AST 23 (5-31) U/L ALT 23 (0-31) U/L Alkaline Phosphatase 66 (39-117) U/L Total Protein 7.1 (6.5-8.0) g/dL Albumin 4.0 (3.5-5.0) g/dL Beta HCG, Quant 87936 mIU/mL Influenza Type A (PCR) NEGATIVE (Negative) Influenza Type B (PCR) NEGATIVE (Negative) RSV RNA Qual (PCR) NEGATIVE (Negative) SARS-CoV-2 RNA (RT-PCR) NEGATIVE (Negative) Radiology Impression Discussion of test interpretation with radiology: I have reviewed the radiologist's reading. Radiologist Impression: FINDINGS: There is a single, live intrauterine . There is a 1.3 x 1.6 x 0.9 cm cystic structure in the placenta. AUA = 13 weeks 0 days KEELEY(AUA) = 02/15/2025 LMP = unknown CRL = 6.5cm FHR = 169bpm Right ovary: The right ovary measures 2.8 x 1.4 x 2.5 cm and is unremarkable. Left ovary: The left ovary measures 3.0 x 1.6 x 2.2 cm and demonstrates a 2.0 x 1.3 x 2.0 cm hypoechoic area which likely represents the corpus luteum. Cul-de-sac: No free fluid US/US OB <= 14 weeks fetus IMPRESSION: Single, live intrauterine of estimated gestational age 13 weeks, 0 days. Electronically signed by: Vitor Lucas MD 08/10/2024 01:58 PM EDT Discharge Plan Discharge Clinical Impression: Hyperemesis gravidarum Patient Disposition: Home, Self-Care Instructions: Hyperemesis Gravidarum (ED) Additional Instructions: You have a single intrauterine gestation. The heart rate is 169 beats per minute which is normal Your blood work was reassuring You may use , I just as needed for nausea and vomiting. I recommend taking vitamins daily. It is important to follow up with your OBGYN as soon as possible Return for new or worsening symptoms Prescriptions: New doxylamine-pyridoxine (vit B6) [Diclegis] 10-10 mg tablet,delayed release (DR/EC) 1 tab PO BID PRN (Reason: nausea and vomiting) Qty: 60 0RF Alive Daily Support 180 mcg-25 mg- 25 mg tablet,chewable 1 tab PO DAILY Qty: 30 0RF No Action levonorgestrel [Plan B One-Step] 1.5 mg tablet 1.5 mg PO ONCE Qty: 1 4RF (DME) Aerochamber MV Spacer See Rx Instructions .Route Qty: 10 0RF Rx Instructions: As directed albuterol sulfate 2.5 mg /3 mL (0.083 %) solution for nebulization 2.5 mg inhalation QID PRN (Reason: bronchospasm) Qty: 75 0RF (DME) Aeroneb Go Nebulizer Misc See Rx Instructions .Route Qty: 1 0RF Rx Instructions: As directed albuterol sulfate [Ventolin HFA] 90 mcg/actuation HFA aerosol inhaler 2 puff inhalation Q4-6H PRN (Reason: shortness of breath or wheezing) Qty: 8.5 0RF ibuprofen 600 mg tablet 600 mg PO Q6H PRN (Reason: fever or pain) Qty: 30 0RF levonorgestrel-ethinyl estrad 0.1-20 mg-mcg tablet 1 tab PO DAILY Qty: 84 4RF Stand Alone Forms: Work/School Release Print Language: Greek
[2024-08-10 12:22] LABS: Anion Gap 10 (12-20); Blood Urea Nitrogen 7 mg/dL (9-16); Calcium 9.5 mg/dL (8.4-10.2); Carbon Dioxide 25 mmol/L (22-29); Chloride 106 mmol/L (96-108); Creatinine Clr Calc Pharmacy 152.5; Estimated Glomerular Filt Rate > 60; Glucose Random 78 mg/dL (60-115); Sodium 137 mmol/L (135-145)
[2024-08-10 12:47] LABS: Influenza A PCR NEGATIVE (Negative); Influenza B PCR NEGATIVE (Negative); Resp Syncy Virus RNA Qual PCR NEGATIVE (Negative); SARS COV2 PCR INHOUSE NEGATIVE (Negative)
[2024-08-10 12:54] LABS: Alanine Aminotransferase 23 U/L (0-31); Aspartate Amino Transferase 23 U/L (5-31); Bilirubin Direct 0.2 mg/dL (0.0-0.5); Bilirubin Total 0.7 mg/dL (0.0-1.0); Magnesium 1.9 mg/dL (1.6-2.6); Total Protein 7.1 g/dL (6.5-8.0)
[2024-08-10 13:10] LABS: Alkaline Phosphatase 66 U/L (39-117)
[2024-08-10 16:47] VITALS: BP 104/52; PULSE 78; RESP 18; TEMP 36.9; O2SAT 98
== END 2024-08-10 16:48 | disposition home or self-care (01) ==
PROVIDERS: Physician Assistant Medical; Emergency Provider Internal Medicine
DX: O21.0 Mild hyperemesis gravidarum (principal); Z3A.14 14 weeks gestation of pregnancy; E86.0 Dehydration; M79.10 Myalgia, unspecified site; R06.02 Shortness of breath; Z03.818 Encounter for observation for suspected exposure to other biological agents ruled out
CPT/HCPCS: 0241U; 76801; 80048; 80076; 83735; 84702; 85025; 99282; 99284

== ENCOUNTER → 2024-08-10 12:15 | Outpatient (BNV) | payer MEDICAID, SELFPAY | PROVIDERS: Visit Provider Radiology Diagnostic Radiology | DX: O26.891 Other specified pregnancy related conditions, first trimester (principal) | CPT/HCPCS: 76801 ==